=== PATIENT | male | born 1975 | race Two or more races ===

== ENCOUNTER 2021-01-22 03:42 | Emergency (ER) | payer BC ==
[~2021-01-22] VITALS: Ht 157.5 cm; Wt 79.4 kg
--- NOTE | 2021-01-22 04:00 | NUR ---
PT BIB SELF FROM HOME WITH C/O A NON RADIATING MIDSTERNAL CHEST PAIN SINCE 2AM ACCOMPANIED BY TIGHTNESS. AAO X 4, AMBULATORY, NO SIGN OF ACUTE DISTRESS NOTED. BREATHING EVEN AND UNLABORED, SATURATION AT 98% ON ROOM AIR. SEEN AND EXAMINED BY DR GARCIA. PATIENT ATTACHED TO MONITOR AND PULSE OX. WILL CONTINUE TO MONITOR AND ATTEND TO MD ORDERS.
--- NOTE | 2021-01-22 04:05 | NUR ---
EKG DONE AT BEDSIDE.
--- NOTE | 2021-01-22 04:06 | NUR ---
IV LINE ESTABLISHED AT RAC 18G, PATENT AND FLUSHING WELL.
--- NOTE | 2021-01-22 04:10 | NUR ---
CXR DONE, 2 RADIOLOGY PERSONNEL PRESENT AT BEDSIDE.
[2021-01-22 04:14] LABS: BASOPHILS % (AUTO) 0.4 % (0.0-2.0); EOSINOPHILS % (AUTO) 3.7 % (0.0-6.0); HEMATOCRIT 43 % (39-51); LYMPHOCYTES # (AUTO) 3.2 K/uL (0.8-4.8); LYMPHOCYTES % (AUTO) 39.8 % (20.0-44.0); MEAN CORPUSCULAR HGB CONC 35 g/dl (31.0-36.0); MEAN CORPUSCULAR VOLUME 87 fL (80-96); MONOCYTES # (AUTO) 0.5 K/uL (0.1-1.30); MONOCYTES % (AUTO) 6.6 % (2.0-12.0); NEUTROPHILS # (AUTO) 3.9 K/uL (1.8-8.9); NEUTROPHILS % (AUTO) 49.5 % (43.0-81.0); PLATELET COUNT (AUTO) 317 K/uL (150-450); RED BLOOD CELL COUNT(AUTO) 4.92 MIL/uL (4.5-6.0); WHITE BLOOD COUNT (AUTO) 7.9 K/uL (4.3-11.0)
[2021-01-22 04:35] LABS: ALANINE AMINOTRANSFERASE 83 U/L (12-78); ALBUMIN 3.9 g/dL (3.4-5.0); ALKALINE PHOSPHATASE 94 U/L (46-116); ASPARTATE AMINOTRANSFERASE 55 U/L (15-37); BILIRUBIN,DIRECT 0.1 mg/dL (0.0-0.2); BILIRUBIN,TOTAL 0.4 mg/dL (0.2-1.0); CALCIUM, SERUM 8.5 mg/dL (8.5-10.1); CARBON DIOXIDE 28 mmol/L (21-32); CHLORIDE 104 mmol/L (98-107); CREATININE 1.1 mg/dL (0.6-1.3); GLUCOSE 106 mg/dL (74-106); POTASSIUM 3.5 mmol/L (3.5-5.1); SODIUM SERUM 142 mmol/L (136-145); TOTAL PROTEIN, SERUM 7.6 g/dL (6.4-8.2); UREA NITROGEN, BLOOD 14 mg/dL (7-18)
[2021-01-22 05:02] LABS: D-DIMER 0.19 mg/L(FEU (0.17-0.50)
--- NOTE | 2021-01-22 05:55 | NUR ---
Patient discharged to home in stable condition. Written and verbal after care instructions given. Patient verbalizes understanding of instruction. Pt ambulatory with a steady gait.
[2021-01-22 06:06] VITALS: BP 137/85
== END 2021-01-22 05:55 | disposition home or self-care (01) ==
LOC: ER 03:46
DX: R07.89 Other chest pain (principal)
CPT/HCPCS: 36415; 71045-TC; 80048-TC; 80076-TC; 83880; 84484-TC; 85025-TC; 85378-TC; 85730-TC